=== PATIENT | male | born 1995 | race Caucasian/White ===

== ENCOUNTER 2017-01-16 01:55 | Emergency (ER) | payer OTHER ==
[~2017-01-16] VITALS: Ht 190.5 cm; Wt 79.6 kg
[2017-01-16 01:59] VITALS: BP 130/81; TEMP 37; Ht 190.5 cm; Wt 79.6 kg
[2017-01-16] MEDS ORDERED: HYDR-5688 PO (03:03)
[2017-01-16] MEDS ORDERED: IBUPROFEN 600 MG TAB PO STA (03:09)
[2017-01-16] MEDS ORDERED: HYDROCODONE/ACETAMOPHEN 5/325MG TAB PO STA (03:09)
--- NOTE | 2017-01-16 03:09 | EMERGENCY ROOM VISIT NOTE ---
History Report prepared by James: Rinku Prado Under the Supervision of: Dr. Leighann Lizarraga M.D. First contact with patient: 02:11 Chief Complaint: RIB PAIN Stated Complaint: RIB PAIN, CHEST PAIN History of Present Illness The patient is a 21 year old male who presents to the Emergency Room with complaints of worsening right sided chest pain beginning four days ago. He states that he developed his pain after falling out of his bed. He states that his chest hit something on the floor, but is unsure as to what it was. The patient denies any fevers, or SOB. His pain is worsened with touch. He has not noticed bruising to the area. The patient estimates that he fell about 2 feet or so out of his bed. Source of History: patient Onset: four days ago Position: chest Timing: worsening Modifying Factors (Worsening): other (touch) Associated Symptoms: No SOB, No fevers Review of Systems See HPI for pertinent positives & negatives. A total of 10 systems reviewed and were otherwise negative. Past Medical & Surgical Medical Problems: (1) Acute bronchitis (2) Dyspnea (3) Encounter for removal of sutures (4) Open nasal fracture (5) SOB (shortness of breath) Family History Patient reports no known family medical history. Social History Smoking Status: Never Smoker Alcohol Use: occasionally Drug Use: none Marital Status: single Occupation Status: [employer] student Current/Historical Medications Scheduled PRN Hydrocodone/Acetaminophen 5MG/325MG ([place] 5MG/325MG), 1-2 TABLETS PO Q6 PRN for Pain Allergies Coded Allergies: No Known Allergies (Unverified , 01/16/17) Physical Exam Vital Signs Date Time Temp Pulse Resp B/P Pulse Ox O2 Delivery O2 Flow Rate FiO2 01/16/17 03:15 76 18 98 01/16/17 01:59 37.0 86 18 130/81 96 Room Air Physical Exam Vital signs reviewed. General: Well-appearing male, in no significant distress. HEENT: No scleral icterus, PERRLA, neck supple. Atraumatic. Cardiovascular: Regular rate and rhythm, no extra sounds. Pulmonary: Clear to auscultation bilaterally, normal work of breathing. Abdomen: Soft, nontender, nondistended, positive bowel sounds. Musculoskeletal: Atraumatic, no peripheral edema. Tenderness to palpation of the right anterior chest. Neurologic: Patient awake alert and oriented x 3, full strength in all 4 extremities. Cranial nerves 2 through 12 grossly intact. Skin: Warm, dry, no rash Medical Decision & Procedures ER Provider Diagnostic Interpretation: X-ray Right Ribs interpreted by me: minimal cortical irregularity at the sixth rib on the right. No pneumothorax. No focal consolidation. Normal mediastinum. Medications Administered Medications (Trade) Dose Ordered Sig/Flip Route Start Time Stop Time Status Last Admin Dose Admin Ibuprofen (Motrin Tab) 600 mg NOW STAT PO 01/16/17 03:09 01/16/17 03:10 DC 01/16/17 03:13 600 MG Acetaminophen/ Hydrocodone Bitart ([place] 5/325 Tab) 1 tab NOW STAT PO 01/16/17 03:09 01/16/17 03:10 DC 01/16/17 03:13 1 TAB ED Course 0240: Past medical records reviewed. The patient was evaluated in room B6. A complete history and physical examination was performed. 0310: Ordered Motrin Tab 600 mg PO, [place] 5/325 mg tab PO. Upon reevaluation, the patient appeared to have improvement of his symptoms. I discussed findings with him. The patient verbalized agreement of the treatment plan. He was discharged home. Medical Decision Differential diagnosis: Rib fracture, contusion, acute coronary syndrome, pulmonary embolus, aortic dissection, musculoskeletal pain, pneumonia, pleural effusion, pneumothorax This patient was evaluated and appeared to be in no significant distress. IV access was obtained and laboratory work was drawn. The patient was given 600 mg of ibuprofen orally. Chest x-ray was obtained and reveals a slight cortical irregularity along the right anterior sixth rib. It is unclear if this is acute , although it does not appear to be. It is right over the site of the patient' s discomfort. I suspect this is an anomalous. The patient was advised to use ibuprofen as needed for pain. He will use warm compresses and stretch. Patient will follow-up with his physician this week for reevaluation return to the ER for worsening of symptoms or any medical concerns. Impression Primary Impression: Rib contusion Scribe Attestation The scribe's documentation has been prepared under my direction and personally reviewed by me in its entirety. I confirm that the note above accurately reflects all work, treatment, procedures, and medical decision making performed by me. Departure Information Dispostion Home / Self-Care Prescriptions Hydrocodone/Acetaminophen 5MG/325MG ([place] 5MG/325MG) Tab 1-2 TABLETS PO Q6 Y for Pain, #14 TAB Prov: Leighann Lizarraga M.D. 01/16/17 Referrals No Doctor, Assigned (PCP) Forms HOME CARE DOCUMENTATION FORM, IMPORTANT VISIT INFORMATION, WORK / SCHOOL INSTRUCTIONS Patient Instructions My [facility] Additional Instructions Diagnosis: Right rib contusion Ibuprofen 600 mg every 6 hours as needed for pain with food. [place] one to 2 tabs every 6 hours as needed for more severe pain. Do not drive or take Tylenol with this medication. Ice to the anterior chest intermittently for the next 2 days. Follow-up with [facility] for reevaluation and further management. Return to the ER for worsening of symptoms or any medical concerns. Problem Qualifiers Primary Impression: Rib contusion Encounter type: initial encounter Laterality: right Qualified Codes: S20.211A - Contusion of right front wall of thorax, initial encounter
[2017-01-16 03:15] VITALS: PULSE 76; O2SAT 98
--- NOTE | 2017-01-16 06:42 | DIAGNOSTIC IMAGING REPORT ---
RIGHT RIBS UNILATERAL WITH PA CHEST CLINICAL HISTORY: Right rib pain status post trauma COMPARISON STUDY: Chest x-ray dated 07/18/2016 FINDINGS: The erect chest reveals no pneumothorax. There is no focal pulmonary consolidation. No right-sided rib fractures are visualized. IMPRESSION: No evidence of pneumothorax. No right-sided rib fractures are visualized. Electronically signed by: Eloy Verduzco M.D. 01/16/2017 6:40 AM Dictated Date/Time: 01/16/2017 6:39 AM
== END 2017-01-16 03:17 | disposition home or self-care (01) ==
LOC: C.EDB 01:56
DX: S20.211A Contusion of right front wall of thorax, initial encounter (principal); W06.XXXA Fall from bed, initial encounter

== ENCOUNTER 2017-01-18 12:28 | Emergency (ER) | payer OTHER ==
[~2017-01-18] VITALS: Ht 190.5 cm; Wt 79.0 kg
[~2017-01-18 12:28] MED LIST: HYDR-5688 PO
[2017-01-18 12:32] VITALS: TEMP 36.3; Ht 190.5 cm; Wt 79.0 kg
[2017-01-18] MEDS ORDERED: IBUPROFEN 600 MG TAB PO STA (12:43)
--- NOTE | 2017-01-18 13:18 | DIAGNOSTIC IMAGING REPORT ---
RIGHT RIBS UNILATERAL WITH PA CHEST CLINICAL HISTORY: Right anterior rib pain following injury. COMPARISON STUDY: Right rib series and chest radiograph January 16, 2017. FINDINGS: There is no pneumothorax or pleural effusion. Lungs are clear. Cardiac size is normal. Mediastinal contours are normal. There is a possible acute nondisplaced fracture of the anterior right 11th rib. IMPRESSION: No pneumothorax. Possible acute nondisplaced anterior right 11th rib fracture. Electronically signed by: Joao Lowe M.D. 01/18/2017 1:17 PM Dictated Date/Time: 01/18/2017 1:14 PM
--- NOTE | 2017-01-18 13:49 | EMERGENCY ROOM VISIT NOTE ---
History First contact with patient: 12:36 Chief Complaint: RIB PAIN Stated Complaint: CHEST PAIN/RIB FRACTURE History of Present Illness The patient is a 21 year old male who presents to the Emergency Room with complaints of right anterior chest wall pain. The patient states that he tripped and fell several days ago. He states that he landed on a rock and injured the right anterior chest just above the nipple line. The patient was seen in the emergency department and had seemingly negative x-rays. The patient has been taking hydrocodone but states that it makes him dizzy and does not really help the pain. He has been taking 200 mg of ibuprofen at a time. He denies any pain with deep inspiration. He denies any shortness of breath. He denies any abdominal pain, nausea or vomiting. The patient states the pain is worse when he engages the chest wall muscles when he pushes himself up off the floor. He states he also has discomfort when he tries to lay on his side to sleep. He rates his discomfort a 6/10. Review of Systems A 10 system review of systems was completed with positives and pertinent negatives listed in the HPI. Past Medical/Surgical History Medical Problems: (1) Acute bronchitis (2) Dyspnea (3) Encounter for removal of sutures (4) Open nasal fracture (5) SOB (shortness of breath) Family History Patient reports no known family medical history. Social History Smoking Status: Current Every Day Smoker Alcohol Use: occasionally Drug Use: none Marital Status: single Occupation Status: [employer] student Current/Historical Medications Scheduled PRN Hydrocodone/Acetaminophen 5MG/325MG ([place] 5MG/325MG), 1-2 TABLETS PO Q6 PRN for Pain Ibuprofen (Motrin), 600 MG PO Q6H PRN for Pain Oxycodone Ir (Roxicodone Ir), 1 TAB PO Q8 PRN for Pain Allergies Coded Allergies: No Known Allergies (Unverified , 01/16/17) Physical Exam Vital Signs Date Time Temp Pulse Resp B/P Pulse Ox O2 Delivery O2 Flow Rate FiO2 01/18/17 13:56 68 16 107/60 98 01/18/17 12:32 36.3 83 18 148/72 99 Room Air Physical Exam VITALS: Vitals are noted on the nurse's note and reviewed by myself. Vital signs stable. The patient is afebrile. GENERAL: This is a 21-year-old male, in no acute distress, nondiaphoretic, well- developed well-nourished. SKIN: The skin was without rashes, erythema, edema, or bruising. There is no tenting of the skin. Capillary reflex less than 2 seconds. HEAD: Normocephalic atraumatic. EARS: The external ears are normal in appearance EYES: Pupils equal round and reactive to light and accommodation. Conjunctivae without injection, sclerae without icterus. Extraocular movements intact. NOSE: Patent, turbinates without inflammation or discharge. MOUTH: Mucous membranes moist. Tonsils are not enlarged. Pharynx without erythema or exudate. Uvula midline. Airway patent. Tongue does not deviate. NECK: Supple without nuchal rigidity. No JVD. HEART: Regular rate and rhythm without murmurs gallops or rubs. LUNGS: Clear to auscultation bilaterally without wheezes, rales or rhonchi. There is tenderness to palpation to the right anterior ribs just above the nipple line. No retractions or accessory muscle use. ABDOMEN: Positive bowel sounds x 4. Soft, nontender, without masses or organomegaly. MUSCULOSKELETAL: No muscle atrophy, erythema, or edema noted. Full range of motion without joint tenderness in all extremities. No tenderness to palpation. Normal gait. Strength 5/5 throughout. NEURO: Patient was alert and oriented to person place and time. No focal neurological deficits. Medical Decision & Procedures ER Provider Diagnostic Interpretation: [~ rep ct add3]] RIGHT RIBS UNILATERAL WITH PA CHEST CLINICAL HISTORY: Right anterior rib pain following injury. COMPARISON STUDY: Right rib series and chest radiograph January 16, 2017. FINDINGS: There is no pneumothorax or pleural effusion. Lungs are clear. Cardiac size is normal. Mediastinal contours are normal. There is a possible acute nondisplaced fracture of the anterior right 11th rib. IMPRESSION: No pneumothorax. Possible acute nondisplaced anterior right 11th rib fracture. Medications Administered Medications (Trade) Dose Ordered Sig/Flip Route Start Time Stop Time Status Last Admin Dose Admin Ibuprofen (Motrin Tab) 600 mg NOW STAT PO 01/18/17 12:43 01/18/17 12:45 DC 01/18/17 12:51 600 MG ED Course The patient was seen and examined. Previous visits were reviewed. The patient was afebrile. His vital signs are stable. The patient tripped and fell and injured his chest wall. The pain is completely reproducible and is worsened with engaging the pectoralis muscles. The patient has not had any shortness of breath, pain with deep inspiration or significant pain at rest. He does not have any abdominal pain or tenderness on examination. X-rays were obtained as above. There is a questionable right anterior 11th rib fracture but the patient does not have any tenderness in this area. This likely represents musculoskeletal injury, possibly costochondritis or muscular contusion. The patient was not taking enough ibuprofen. He was given a prescription for Motrin 600 mg every 6 hours. He was also given a small prescription of OxyIR to take at bedtime if needed. He should follow-up with [facility] next week if symptoms are not improving. He should return sooner with worsening symptoms. Medical Decision Differential diagnosis includes rib contusion, rib fracture, pneumothorax, hemothorax, among others [place] Drug Monitoring Program Search Results: patient reviewed within database, no issues identified Impression Primary Impression: Chest wall contusion Departure Information Dispostion Home / Self-Care Condition GOOD Prescriptions Oxycodone Ir (Roxicodone Ir) 5 Mg Tab 1 TAB PO Q8 Y for Pain, #9 TAB For Initial Treatment Prov: Debby Escobedo PA-C 01/18/17 Ibuprofen (Motrin) 600 Mg Tab 600 MG PO Q6H Y for Pain for 14 Days, #56 TAB Prov: Debby Escobedo PA-C 01/18/17 Referrals [facility] (PCP) Forms HOME CARE DOCUMENTATION FORM, IMPORTANT VISIT INFORMATION, WORK / SCHOOL INSTRUCTIONS Patient Instructions ED Chest Pain Costochondritis, My [facility] Additional Instructions Motrin 600 mg every 6-8 hours for moderate pain over the next 5-7 days Try the oxycodone at bedtime for more severe pain Follow-up with [facility] services in 5-7 days if symptoms are not improving Return with any fevers, trouble breathing, abdominal pain or generalized worsening symptoms School Instructions Return To School: 1 day Problem Qualifiers Primary Impression: Chest wall contusion Encounter type: subsequent encounter Laterality: right Qualified Codes: S20.211D - Contusion of right front wall of thorax, subsequent encounter
[2017-01-18] MEDS ORDERED: IBUP600T44 PO (13:50)
[2017-01-18] MEDS ORDERED: OXYC1TAB3 PO (13:50)
[2017-01-18 13:56] VITALS: BP 107/60; PULSE 68; O2SAT 98
== END 2017-01-18 13:57 | disposition home or self-care (01) ==
LOC: C.EDB 12:29 → C.EDD 13:57
DX: S20.211D Contusion of right front wall of thorax, subsequent encounter (principal); W18.09XD Striking against other object with subsequent fall, subsequent encounter; F17.210 Nicotine dependence, cigarettes, uncomplicated